=== PATIENT | male | born 1990 | race African-American/Black ===

== ENCOUNTER 2018-02-07 09:15 | Emergency (ER) | payer MEDICAID ==
[~2018-02-07] VITALS: Ht 167.6 cm; Wt 83.0 kg
[2018-02-07 11:30] VITALS: BP 127/76
[2018-02-07] MEDS ORDERED: IBUPROFEN 600MG TABLET PO ONE (11:30)
[2018-02-07] MEDS ORDERED: TETANUS, DIPHTHERIA, PERTUSSIS VAC/PF 0.5ML (>7YR OLD) IM ONE (11:45)
[2018-02-07] MEDS ORDERED: BACITRACIN ZINC OINT UDPKT TOP ONE (11:45)
== END 2018-02-07 13:07 | disposition home or self-care (01) ==
LOC: ER 09:15
DX: S80.812A Abrasion, left lower leg, initial encounter (principal); S80.811A Abrasion, right lower leg, initial encounter; W22.8XXA Striking against or struck by other objects, initial encounter; Y93.89 Activity, other specified; Y92.89 Other specified places as the place of occurrence of the external cause; Y99.8 Other external cause status
CPT/HCPCS: 73590; 90471; 90715; 99284

== ENCOUNTER 2018-12-17 20:23 | Emergency (ER) | payer MEDICAID ==
[~2018-12-17] VITALS: Ht 180.3 cm; Wt 80.0 kg
[2018-12-17] MEDS ORDERED: KETOROLAC 60MG/2ML VIAL IM STA (22:54)
[2018-12-17] MEDS ORDERED: BACITRACIN ZINC OINT UDPKT TOP ONE (23:00)
[2018-12-17] MEDS ORDERED: LIDOCAINE HCL/PF 1% 10 MG/ML 5ML VIAL IJ ONE (23:00)
[2018-12-18 00:10] VITALS: BP 135/65
== END 2018-12-18 00:10 | disposition home or self-care (01) ==
LOC: ER 20:23
DX: L02.411 Cutaneous abscess of right axilla (principal)
CPT/HCPCS: 10060; 96372; 99283; J1885; J3490; Z7610

== ENCOUNTER 2018-12-20 11:26 | Emergency (ER) | payer MEDICAID ==
[~2018-12-20] VITALS: Ht 180.3 cm; Wt 79.0 kg
[2018-12-20] MEDS ORDERED: IBUPROFEN 600MG TABLET PO ONE (14:00)
[2018-12-20 14:04] VITALS: BP 110/62
== END 2018-12-20 14:21 | disposition home or self-care (01) ==
LOC: ER 11:26
DX: S41.111D Laceration without foreign body of right upper arm, subsequent encounter (principal); F12.10 Cannabis abuse, uncomplicated; X58.XXXD Exposure to other specified factors, subsequent encounter
CPT/HCPCS: 99283